=== PATIENT | female | born 1965 | race American Indian/Alaskan Native ===

== ENCOUNTER 2017-12-15 06:14 | Emergency (ER) | payer OTHER ==
[2017-12-15] MEDS ORDERED: NACL 0.9% 1000 ML 1,000 ML IV ONE (07:31)
[2017-12-15 08:20] LABS: Basophils # (Auto) 0.1 K/mm3 (0.0-0.1); Basophils % (Auto) 1.3 % (0.0-1.8); Eosinophils # (Auto) 0.1 K/mm3 (0.0-0.4); Eosinophils % (Auto) 0.9 % (0.0-4.3); Hematocrit 35.8 % (30.3-42.9); Hemoglobin 11.9 gm/dl (10.1-14.3); Lymphocytes # (Auto) 2.3 K/mm3 (1.2-5.4); Lymphocytes % (Auto) 37.6 % (13.4-35.0); Mean Corpuscular HGB Conc 33 % (30-34); Mean Corpuscular Hemoglobin 30 pg (28-32); Mean Corpuscular Volume 92 fl (79-97); Monocytes # (Auto) 0.7 K/mm3 (0.0-0.8); Monocytes % (Auto) 11.9 % (0.0-7.3); Platelet Count 232 K/mm3 (140-440); Red Blood Count 3.91 M/mm3 (3.65-5.03); Red Cell Distribution Width 13.9 % (13.2-15.2)
[2017-12-15 08:30] LABS: INR 1.11 (0.87-1.13)
[2017-12-15 08:31] LABS: Partial Thromboplastin Time 30.5 Sec. (24.2-36.6)
[2017-12-15 11:23] LABS: Alanine Aminotransferase 10 units/L (7-56); BUN/Creatinine Ratio 20; Blood Urea Nitrogen 22 mg/dL (7-17); Calcium 9.9 mg/dL (8.4-10.2); Hemolysis Index 31; Lipase 29 units/L (13-60)
[2017-12-15 13:23] LABS: Bilirubin,Urine NEG (Negative); Blood,Urine LG (Negative); Color,Urine Yellow (Yellow); Mucus,Urine FEW /HPF; Nitrite,Urine NEG (Negative); Protein,Urine <15 mg/dL mg/dL (Negative); Urobilinogen,Urine < 2.0 mg/dL (<2.0)
[2017-12-15 17:07] VITALS: BP 94/36
--- NOTE | 2017-12-15 20:12 | Cat Scan Report ---
FINAL REPORT PROCEDURE: CT ABDOMEN PELVIS WO CON TECHNIQUE: Computerized axial tomography of the abdomen and pelvis was performed without intravenous contrast. This study is performed without intravascular contrast material and its sensitivity for abdominal and pelvic pathology, including neoplasms, inflammation, abscess, free fluid, thrombosis, arterial dissection and infarction, is reduced compared with a contrast enhanced study. HISTORY: minor GI bleed COMPARISON: No prior studies are available for comparison. FINDINGS: Visualized lower thorax: No significant abnormality. Liver: Normal size and attenuation. Spleen: Normal size and attenuation. Gallbladder and biliary system: Normal. Pancreas: Normal. Adrenals: Normal. Kidneys: No hydronephrosis or urolithiasis. GI tract: The appendix is not visualized. No bowel obstruction or acute inflammation is seen. Lymph nodes and mesentery: Normal. Vasculature: Normal. Bladder: Normal. Reproductive organs: Normal. Peritoneum: No free fluid. Musculoskeletal structures: There are degenerative disc changes at L4-5 and L5-S1. Other: None. IMPRESSION: No bowel obstruction or acute inflammation.
--- NOTE | 2017-12-15 20:19 | Emergency Department Report ---
ED GI Bleed HPI - General Chief complaint: GI Bleed Stated complaint: RECTAL BLEEDING Time Seen by Provider: 12/15/17 16:43 Source: patient, EMS Mode of arrival: Ambulatory Limitations: No Limitations - History of Present Illness Initial comments: Patient is a 52-year-old [place] female who's covering his epidural C large amount of blood in her stool. Patient states she felt a sensation have a bowel movement which went to the bathroom there was nothing but blood became out. Patient states there was no pain she has not had any diarrhea or major constipation in the last several weeks. Patient denies fevers chills cough chest pain nausea vomiting. MD complaint: gross hematochezia Severity scale (0 -10): 1 Associated Symptoms: denies: abdominal pain, nausea, vomiting, epistaxis, headaches, loss of appetite, malaise, easy bruising, rash, other bleeding, shortness of breath, syncope, weakness - Related Data Previous Rx's Medication Instructions Recorded Last Taken Type Hydrocortisone [Anucort-HC SUPPOS] 25 mg RC BID #10 supp.rect 12/15/17 Unknown Rx Allergies Allergy/AdvReac Type Severity Reaction Status Date / Time No Known Allergies Allergy Unverified 12/15/17 07:26 ED Review of Systems ROS: Stated complaint: RECTAL BLEEDING Other details as noted in HPI Comment: All other systems reviewed and negative ED Past Medical Hx - Past Medical History Previous Medical History?: Yes Hx Hypertension: Yes Hx Diabetes: Yes - Surgical History Past Surgical History?: Yes Additional Surgical History: goiter, trach - Social History Smoking Status: Never Smoker Substance Use Type: None - Medications Home Medications: Home Medications Medication Instructions Recorded Confirmed Last Taken Type Hydrocortisone [Anucort-HC SUPPOS] 25 mg RC BID #10 supp.rect 12/15/17 Unknown Rx ED Physical Exam - General Limitations: No Limitations General appearance: alert, in no apparent distress - Head Head exam: Present: atraumatic, normocephalic - Eye Eye exam: Present: normal appearance - ENT ENT exam: Present: mucous membranes moist - Neck Neck exam: Present: normal inspection - Respiratory Respiratory exam: Present: normal lung sounds bilaterally. Absent: respiratory distress - Cardiovascular Cardiovascular Exam: Present: regular rate, normal rhythm. Absent: systolic murmur, diastolic murmur, rubs, gallop - GI/Abdominal GI/Abdominal exam: Present: soft, normal bowel sounds. Absent: distended, tenderness, guarding - Rectal Rectal exam: Present: normal inspection. Absent: mass, tenderness - Extremities Exam Extremities exam: Present: normal inspection - Back Exam Back exam: Present: normal inspection - Neurological Exam Neurological exam: Present: alert, oriented X3 - Psychiatric Psychiatric exam: Present: normal affect, normal mood - Skin Skin exam: Present: warm, dry, intact, normal color. Absent: rash ED Course Vital Signs 12/15/17 12/15/17 07:26 17:05 Temperature 97.8 F 98.2 F Pulse Rate 50 L 55 L Respiratory 16 15 Rate Blood Pressure 114/46 Blood Pressure 94/36 [Right] O2 Sat by Pulse 99 96 Oximetry ED Medical Decision Making - Lab Data Result diagrams: 12/15/17 07:32 12/15/17 07:32 - Radiology Data Radiology results: report reviewed CT abdomen and pelvis shows no inflammatory process to the [facility] Critical care attestation.: If time is entered above; I have spent that time in minutes in the direct care of this critically ill patient, excluding procedure time. ED Disposition Clinical Impression: Internal hemorrhoid GI bleed Qualifiers: GI bleed type/associated pathology: unspecified gastrointestinal hemorrhage type Qualified Code(s): K92.2 - Gastrointestinal hemorrhage, unspecified Disposition: DC-01 TO HOME OR SELFCARE Is pt being admited?: No Does the pt Need Aspirin: No Condition: Stable Instructions: Hemorrhoids (ED) Prescriptions: Hydrocortisone [Anucort-HC SUPPOS] 25 mg RC BID #10 supp.rect Referrals: PRIMARY CARE, [Primary Care Provider] - 3-5 Days
== END 2017-12-15 20:48 | disposition home or self-care (01) ==
LOC: ED 06:14
DX: K64.8 Other hemorrhoids (principal); K92.2 Gastrointestinal hemorrhage, unspecified; I10 Essential (primary) hypertension; E11.9 Type 2 diabetes mellitus without complications
CPT/HCPCS: 36415; 74176; 80053; 81001; 83690; 85025; 85610; 85730; 86850; 86900; 86901; 93005; 93010

== ENCOUNTER 2019-10-11 19:10 | Emergency (ER) | payer OTHER ==
[2019-10-11 20:10] LABS: Bacteria,Urine 1+ /HPF (Negative); Bilirubin,Urine NEG (Negative); Blood,Urine MOD (Negative); Color,Urine Yellow (Yellow); Mucus,Urine FEW /HPF; Urobilinogen,Urine < 2.0 mg/dL (<2.0)
[2019-10-11 20:20] LABS: Basophils # (Auto) 0.1 K/mm3 (0.0-0.1); Basophils % (Auto) 0.7 % (0.0-1.8); Eosinophils % (Auto) 0.2 % (0.0-4.3); Hematocrit 37.8 % (30.3-42.9); Hemoglobin 12.5 gm/dl (10.1-14.3); Lymphocytes # (Auto) 1.9 K/mm3 (1.2-5.4); Lymphocytes % (Auto) 23.1 % (13.4-35.0); Mean Corpuscular HGB Conc 33 % (30-34); Mean Corpuscular Volume 94 fl (79-97); Monocytes # (Auto) 0.3 K/mm3 (0.0-0.8); Monocytes % (Auto) 4.1 % (0.0-7.3); Platelet Count 260 K/mm3 (140-440); Red Blood Count 4.03 M/mm3 (3.65-5.03); Red Cell Distribution Width 14.4 % (13.2-15.2)
[2019-10-11 20:40] LABS: BUN/Creatinine Ratio 17; Blood Urea Nitrogen 10 mg/dL (7-17); Calcium 9.4 mg/dL (8.4-10.2); Hemolysis Index 118
[2019-10-11] MEDS ORDERED: SODIUM CHLORIDE 0.9% 1000 ML 1,000 ML IV ONE (21:31)
[2019-10-11] MEDS ORDERED: cefTRIAXone/NS 1 GM/50 ML 1 GM/50 ML BAG IV ONE (21:31)
[2019-10-11] MEDS ORDERED: MORPHINE 4 MG/1 ML INJ IV ONE (21:31)
[2019-10-11] MEDS ORDERED: ONDANSETRON 4 MG/2 ML INJ IV ONE (21:32)
[2019-10-11 22:23] LABS: Alanine Aminotransferase 20 units/L (7-56)
--- NOTE | 2019-10-11 23:14 | Cat Scan Report ---
CT abdomen pelvis wo con INDICATION / CLINICAL INFORMATION: left flank. TECHNIQUE: Axial CT imaging of abdomen and pelvis was obtained without contrast. Coronal and sagittal reformatte d imaging obtained and reviewed. All CT scans at this location are performed using CT dose reduction for ALARA by means of automated exposure control. COMPARISON: 12/15/[address] FINDINGS: CT abdomen without contrast demonstrates grossly normal appearance of the liver, spleen, pancreas, ki dneys, and adrenal glands. No obvious gallbladder pathology. No intrarenal calculi or hydronephrosis identified. CT pelvis without contrast does not demonstrate any pelvic mass, free fluid, or focal inflammatory ch cruz. No evidence for appendicitis. There are some slightly prominent fluid-filled loops of small bow el within the abdomen and pelvis which could possibly represent enteritis, if clinical presentation i s concordant. Visualized lung bases are clear. Multilevel degenerative disc disease is noted within the lumbar spine. This is most severe at L4-L5 a nd L5-S1 IMPRESSION: 1. No definite acute abnormality within the abdomen or pelvis. 2. Fluid-filled loops of nondilated small bowel are present which could indicate the presence of ente ritis if there is clinical suspicion. Signer Name: Cleo Gan MD Signed: 10/11/2019 11:10 PM Workstation Name: [id number]
--- NOTE | 2019-10-11 23:36 | Emergency Department Report ---
ED Abdominal Pain HPI - General Chief Complaint: Abdominal Pain Stated Complaint: PAIN ON LEFT SIDE Source: patient Mode of arrival: Ambulatory Limitations: No Limitations - History of Present Illness Initial Comments: Patient is a 54-year-old -[place] female with a history of hypertension who presents to the ED with complaint of acute onset persistent left lung pain is left lower back and left lower quadrant area for the last 2 days. Patient also complains of dysuria, urinary frequency and urgency. Patient denies vaginal bleeding, vaginal discharge, fever, chills, diarrhea, dizziness, chest pain, shortness of breath, cough, traumatic injury or fall. MD Complaint: flank pain (left flank pain), other (dysuria, urinary urgency and frequency) -: Sudden, days(s) (2) Location: suprapubic, R flank Radiation: suprapubic, L flank Migration to: no migration Severity: severe Severity scale (0 -10): 7 Quality: cramping, aching, sharp Consistency: constant Improves With: nothing Worsens With: movement Associated Symptoms: denies other symptoms, nausea, dysuria, anorexia. denies: vomiting, diarrhea, fever, chills, constipation, hematemesis, hematochezia, melena, hematuria, syncope - Related Data Previous Rx's Medication Instructions Recorded Last Taken Type Hydrocortisone [Anucort-HC SUPPOS] 25 mg RC BID #10 supp.rect 12/15/17 Unknown Rx Ibuprofen [Motrin] 800 mg PO Q8HR PRN #20 tablet 10/11/19 Unknown Rx cephALEXin [Keflex] 500 mg PO Q6HR #40 capsule 10/11/19 Unknown Rx tiZANidine [Zanaflex 4mg TAB] 4 mg PO Q8H PRN #15 tablet 10/11/19 Unknown Rx traMADoL [Ultram] 50 mg PO Q6HR PRN #12 tablet 10/11/19 Unknown Rx Allergies Allergy/AdvReac Type Severity Reaction Status Date / Time No Known Allergies Allergy Unverified 12/15/17 07:26 ED Review of Systems ROS: Stated complaint: PAIN ON LEFT SIDE Other details as noted in HPI Constitutional: denies: chills, fever Eyes: denies: eye pain, eye discharge, vision change ENT: denies: ear pain, throat pain Respiratory: denies: cough, shortness of breath, wheezing Cardiovascular: denies: chest pain, palpitations Endocrine: no symptoms reported Gastrointestinal: abdominal pain, nausea. denies: vomiting, diarrhea Genitourinary: urgency, dysuria, frequency. denies: discharge Musculoskeletal: back pain (lower back). denies: joint swelling, arthralgia Skin: denies: rash, lesions Neurological: denies: headache, weakness, paresthesias Psychiatric: denies: anxiety, depression Hematological/Lymphatic: denies: easy bleeding, easy bruising ED Past Medical Hx - Past Medical History Previous Medical History?: Yes Hx Hypertension: Yes Hx Diabetes: Yes Additional medical history: Morbid Obesity - Surgical History Past Surgical History?: Yes Additional Surgical History: goiter, trach - Social History Smoking Status: Never Smoker Substance Use Type: None - Medications Home Medications: Home Medications Medication Instructions Recorded Confirmed Last Taken Type Hydrocortisone [Anucort-HC SUPPOS] 25 mg RC BID #10 supp.rect 12/15/17 Unknown Rx Ibuprofen [Motrin] 800 mg PO Q8HR PRN #20 tablet 10/11/19 Unknown Rx cephALEXin [Keflex] 500 mg PO Q6HR #40 capsule 10/11/19 Unknown Rx tiZANidine [Zanaflex 4mg TAB] 4 mg PO Q8H PRN #15 tablet 10/11/19 Unknown Rx traMADoL [Ultram] 50 mg PO Q6HR PRN #12 tablet 10/11/19 Unknown Rx ED Physical Exam - General Limitations: No Limitations General appearance: alert, in no apparent distress - Head Head exam: Present: atraumatic, normocephalic, normal inspection - Eye Eye exam: Present: normal appearance, PERRL, EOMI Pupils: Present: normal accommodation - ENT ENT exam: Present: normal exam, normal orophraynx, mucous membranes moist, TM's normal bilaterally, normal external ear exam - Neck Neck exam: Present: normal inspection, full ROM - Respiratory Respiratory exam: Present: normal lung sounds bilaterally. Absent: respiratory distress, wheezes, rales, rhonchi, chest wall tenderness, accessory muscle use, prolonged expiratory - Cardiovascular Cardiovascular Exam: Present: regular rate, normal rhythm, normal heart sounds. Absent: systolic murmur, diastolic murmur, rubs, gallop - GI/Abdominal GI/Abdominal exam: Present: soft, tenderness (left flank ), normal bowel sounds - Extremities Exam Extremities exam: Present: normal inspection, normal capillary refill - Back Exam Back exam: Present: normal inspection, full ROM, tenderness (Palpable lumbosacral paraspinal musculoskeletal tenderness), muscle spasm, paraspinal tenderness - Neurological Exam Neurological exam: Present: alert, oriented X3, CN II-XII intact, normal gait, reflexes normal - Psychiatric Psychiatric exam: Present: normal affect, normal mood - Skin Skin exam: Present: warm, dry, intact, normal color. Absent: rash ED Course Vital Signs 10/11/19 10/11/19 19:19 19:33 Temperature 98.4 F 98.4 F Pulse Rate 76 76 Respiratory 16 16 Rate Blood Pressure 189/109 159/109 O2 Sat by Pulse 96 95 Oximetry ED Medical Decision Making - Lab Data Result diagrams: 10/11/19 19:49 10/11/19 19:49 - Radiology Data Radiology results: report reviewed, image reviewed Findings [facility] [address] [id number] Cat Scan Report Signed Patient: KAMINI RODGERS MR#: [id number] : 1965 Acct:[id number] Age/Sex: 54 / F ADM Date: 10/11/19 Loc: ED Attending Dr: Ordering Physician: ELIZABETH DIMAS Date of Service: 10/11/19 Procedure(s): CT abdomen pelvis wo con Accession Number(s): [id number] cc: ELIZABETH DIMAS CT abdomen pelvis wo con INDICATION / CLINICAL INFORMATION: left flank. TECHNIQUE: Axial CT imaging of abdomen and pelvis was obtained without contrast. Coronal and sagittal reformatted imaging obtained and reviewed. All CT scans at this location are p erformed using CT dose reduction for ALARA by means of automated exposure control. COMPARISON: 12/15/[address] FINDINGS: CT abdomen without contrast demonstrates grossly normal appearance of the liver, spleen, pancreas, kidneys, and adrenal glands. No obvious gallbladder pathology. No intrarenal calculi or hy dronephrosis identified. CT pelvis without contrast does not demonstrate any pelvic mass, free fluid, or focal inflammatory change. No evidence for appendicitis. There are some slightly prominent fluid- filled loops of small bowel within the abdomen and pelvis which could possibly represent enteritis, if clinical presentation is concordant. Visualized lung bases are clear. Multilevel degenerative disc disease is noted within the lumbar spine. This is most severe at L4-L5 and L5-S1 IMPRESSION: 1. No definite acute abnormality within the abdomen or pelvis. 2. Fluid-filled loops of nondilated small bowel are present which could indicate the presence of enteritis if there is clinical suspicion. Signer Name: Cleo Gan MD Signed: 10/11/2019 11:10 PM Workstation Name: [id number] Transcribed By: Dictated By: Cleo Gan MD Electronically Authenticated By: Cleo Gan MD Signed Date/Time: 10/11/19 2605 DD/ - Medical Decision Making This is a 54-year-old female who presented to the ED with complaint of acute onset persistent left flank pain she gets with her lower back for 2 days with dysuria and urinary frequency and urgency. Lab test results were reviewed and on nonactionable except for urinalysis that showed significant urinary tract infection. Patient was treated for UTI and also given pain medications, and abdomen pelvis CT scan without contrast shows no acute abnormalities including kidney stones. On reevaluation, patient's pain is well controlled with medications, and O2 sat home on antibiotics and pain medications as well as muscle relaxants and was advised to follow-up with her primary care physician in 7-10 days for reevaluation or return to the ED immediately if symptoms get w orse. - Differential Diagnosis Left flank pain; UTI; Kidney stones; Muscle spasms; Colitis Critical care attestation.: If time is entered above; I have spent that time in minutes in the direct care of this critically ill patient, excluding procedure time. ED Disposition Clinical Impression: Acute left flank pain, Spasm of muscle of lower back, Acute urinary tract infection Disposition: -01 TO HOME OR SELFCARE Is pt being admited?: No Does the pt Need Aspirin: No Condition: Stable Instructions: Abdominal Pain (ED), Urinary Tract Infection in Women (ED), Muscle Spasm (ED) Additional Instructions: Take medications with food, drink plenty of fluids and follow-up with your primary care physician in 7-10 days for reevaluation. Return to the ED i mmediately if symptoms get worse. Prescriptions: cephALEXin [Keflex] 500 mg PO Q6HR #40 capsule Ibuprofen [Motrin] 800 mg PO Q8HR PRN #20 tablet PRN Reason: Pain , Severe (7-10) traMADoL [Ultram] 50 mg PO Q6HR PRN #12 tablet PRN Reason: Pain tiZANidine [Zanaflex 4mg TAB] 4 mg PO Q8H PRN #15 tablet PRN Reason: Muscle Spasm Referrals: PRIMARY CARE,MD [Primary Care Provider] - 3-5 Days Forms: Work/School Release Form(ED) Time of Disposition: 23:33 Print Language: DUTCH
[2019-10-12 00:10] VITALS: BP 174/106
== END 2019-10-12 00:07 | disposition home or self-care (01) ==
LOC: ED 19:10
DX: M62.830 Muscle spasm of back (principal); N39.0 Urinary tract infection, site not specified; I10 Essential (primary) hypertension; E11.9 Type 2 diabetes mellitus without complications; E66.01 Morbid (severe) obesity due to excess calories; Z98.890 Other specified postprocedural states; Z79.899 Other long term (current) drug therapy
CPT/HCPCS: 36415; 74176; 80053; 81001; 83690; 85025; 87086; 96365; 96375; 99284; J0696; J2270; J2405; J7030